=== PATIENT | male | born 1945 | race Caucasian/White ===

== ENCOUNTER 2020-08-22 01:36 | Observation (INO) ==
[2020-08-22] MEDS ORDERED: GLUCAGON 1 MG VIAL IM PRN (04:29)
[2020-08-22] MEDS ORDERED: DEXTROSE 50% 25 GM/50 ML VIAL IV PRN (04:29)
[2020-08-22] MEDS ORDERED: MORPHINE 4 MG/1 ML VIAL IV PRN (04:29)
[2020-08-22] MEDS: ONDANSETRON 4 MG/2 ML VIAL IV PRN ×2 (05:46→11:35)
[2020-08-22 07:29] LABS: Basophils % 0.4 % (0.0-0.8); Eosinophils % 0.3 % (0.00-10.9); Hematocrit 38.9 VOL% (42.0-52.0); Hemoglobin 13.2 GM/DL (14.0-18.0); Immature Granulocytes % 0.3 %; Immature Granulocytes Absolute 0.02 #; Lymphocytes # 1.1 10*3/uL (1.4-4.0); Lymphocytes % 13.9 % (21.2-54.2); Mean Corpuscular HGB Conc 33.9 GM/DL (32-36); Mean Corpuscular Volume 90.3 FL (87-102); Mean Platelet Volume 9.8 FL (9.6-12.0); Monocytes % 6.3 % (1.7-12.7); Neutrophils % 78.8 % (38.7-73.9); Platelet Count 174 T/CUMM (130-400); Red Blood Count 4.31 MC/CUMM (3.8-5.5); White Blood Count 7.9 T/CUMM (4-12)
[2020-08-22 07:45] LABS: Calcium 8.4 MG/DL (8.5-10.1); Potassium 4.2 MMOL/L (3.5-5.1)
[2020-08-22] MEDS: EZETIMIBE 10 MG TABLET PO SCH (08:16)
[2020-08-22] MEDS: ZINC GLUCONATE 50 MG TABLET PO SCH (08:17)
[2020-08-22] MEDS: ASPIRIN CHEW 81 MG TABLET PO SCH (11:31)
[2020-08-22] MEDS: ACETAMINOPHEN 325 MG TABLET PO PRN ×2 (11:32→21:19)
[2020-08-22] MEDS: CHOLECALCIFEROL 1,000 UNIT TABLET PO SCH (11:32)
[2020-08-22] MEDS: METOPROLOL SUCCINATE XL 50 MG TABLET PO SCH (11:32)
[2020-08-22] MEDS ORDERED: LIDOCAINE 1% 20 ML VIAL ONE (12:26)
[2020-08-22] MEDS ORDERED: HEPARIN/NACL 0.9% 2 UNITS/ML 2,000 UNIT/1,000 ML BAG IV ONE (12:26)
[2020-08-22] MEDS ORDERED: DIAZEPAM 5 MG TABLET PO ONE (12:35)
[2020-08-22] MEDS ORDERED: diphenhydrAMINE CAP 25 MG CAPSULE PO ONE (12:35)
[2020-08-22] MEDS ORDERED: SODIUM CHLORIDE 0.9% 1,000 ML IV SCH (13:00)
[2020-08-22] MEDS ORDERED: HYDROmorphone 2 MG/1 ML VIAL ONE (13:05)
[2020-08-22] MEDS ORDERED: MIDAZOLAM 2 MG/2 ML VIAL ONE (13:05)
[2020-08-22] MEDS ORDERED: diphenhydrAMINE 50 MG/1 ML VIAL ONE (13:08)
[2020-08-22] MEDS ORDERED: BIVALIRUDIN 250 MG VIAL IV ONE (13:35)
[2020-08-22] MEDS ORDERED: TICAGRELOR 90 MG TABLET ONE (14:13)
[2020-08-22 19:16] LABS: Bilirubin,Urine Negative (Negative); Blood, Urine Large mg/dL (Negative); Glucose,Urine (UA) Negative (Negative); Ketones,Urine Negative (Negative); Mucus,Urine Occasional /LPF (Occasional); Nitrite,Urine Negative (Negative); Protein,Urine Negative; RBC,Urine 74 /HPF (0-4); Urine Appearance CLEAR (Clear); Urine Color Yellow (Yellow); Urine Urobilinogen < 2.0 EU/DL (0.2-1.0)
[2020-08-22 19:25] LABS: Urine Specific Gravity < 1.060 (1.001-1.035)
[2020-08-22] MEDS: TICAGRELOR 90 MG TABLET PO SCH (21:09)
[2020-08-23 04:23] LABS: Basophils % 0.6 % (0.0-0.8); Eosinophils # 0.2 10*3/uL (0.0-0.87); Eosinophils % 3.1 % (0.00-10.9); Hematocrit 38.1 VOL% (42.0-52.0); Hemoglobin 12.6 GM/DL (14.0-18.0); Immature Granulocytes % 0.3 %; Immature Granulocytes Absolute 0.02 #; Lymphocytes # 1.3 10*3/uL (1.4-4.0); Lymphocytes % 18.5 % (21.2-54.2); Mean Corpuscular HGB Conc 33.1 GM/DL (32-36); Mean Corpuscular Volume 92.5 FL (87-102); Mean Platelet Volume 9.9 FL (9.6-12.0); Monocytes % 11.5 % (1.7-12.7); Platelet Count 170 T/CUMM (130-400); Red Blood Count 4.12 MC/CUMM (3.8-5.5); Red Cell Distribution Width 13.2 % (9.3-17.3)
[2020-08-23 04:39] LABS: Calcium 8.3 MG/DL (8.5-10.1); Osmolality,Calculated 274.7 MOS/KG (273-304); Osmolality,Calculated 275.7 MOS/KG (273-304); Potassium 4.1 MMOL/L (3.5-5.1)
[2020-08-23 08:22] VITALS: BP 177/90
[2020-08-23] MEDS: TICAGRELOR 90 MG TABLET PO SCH (08:51)
[2020-08-23] MEDS: EZETIMIBE 10 MG TABLET PO SCH (08:51)
[2020-08-23] MEDS: METOPROLOL SUCCINATE XL 50 MG TABLET PO SCH (08:51)
[2020-08-23] MEDS: CHOLECALCIFEROL 1,000 UNIT TABLET PO SCH (08:51)
[2020-08-23] MEDS: ASPIRIN CHEW 81 MG TABLET PO SCH (08:51)
[2020-08-23] MEDS: ZINC GLUCONATE 50 MG TABLET PO SCH (08:51)
[2020-08-23] MEDS ORDERED: ASPIRIN EC 325 MG TABLET PO SCH (09:00)
[2020-08-23] MEDS ORDERED: lisinopriL 10 MG TABLET PO SCH (10:00)
== END 2020-08-23 11:16 | disposition home or self-care (01) ==
LOC: N.TELES → SUATTDRO 02:52
PROVIDERS: ADMIT Internal Medicine; ATTEND Internal Medicine Geriatric Medicine
PROC: CLCCHCL (ICD-10-PCS; 2020-08-22 12:45)